=== PATIENT | male | born 1980 | race Native Hawaiian/Other Pacific Islander ===

== ENCOUNTER 2017-01-14 20:57 | Emergency (ER) | payer SELFPAY ==
[~2017-01-14] VITALS: Ht 165.1 cm; Wt 68.0 kg
[2017-01-14 20:59] VITALS: BP 133/85; PULSE 100; RESP 16; TEMP 97.7; O2SAT 99
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
[2017-01-14] MEDS ORDERED: OXYC1TAB36 PO (21:28)
[2017-01-14] MEDS ORDERED: PENI250T59 PO (21:28)
== END 2017-01-14 21:50 | disposition home or self-care (01) ==
LOC: NEPK 20:57
DX: S02.609A Fracture of mandible, unspecified, initial encounter for closed fracture (principal); R68.84 Jaw pain; X58.XXXA Exposure to other specified factors, initial encounter; Y93.9 Activity, unspecified; Y92.9 Unspecified place or not applicable; Y99.8 Other external cause status
CPT/HCPCS: 99283